=== PATIENT | male | born 1950 | race Caucasian/White ===

== ENCOUNTER 2017-07-17 11:21 | Observation (INO) | payer OTHER ==
[2017-07-17] MEDS ORDERED: ASPIRIN EC 325 MG TAB PO ONE ×2 (11:25→12:15)
[2017-07-17] MEDS ORDERED: NS 1,000 ML IV ONE (11:25)
[2017-07-17] MEDS ORDERED: FAMOTIDINE 20 MG TAB PO ONE (11:25)
[2017-07-17] MEDS ORDERED: DIAZEPAM 5 MG TAB PO ONE (11:25)
[2017-07-17] MEDS ORDERED: diphenhydrAMINE 25 MG CAP PO ONE ×2 (11:25→12:15)
[2017-07-17] MEDS ORDERED: IOPAMIDOL (ISOVUE-370) 150 ML BTL IV ONE ×2 (11:38→13:44)
[2017-07-17] MEDS ORDERED: LIDOCAINE 1% 300 MG/30 ML SDV ONE (11:38)
--- NOTE | 2017-07-17 11:48 | CPEKG ---
Heart Rate: 58 RR Interval: 1034 P-R Interval: 204 QRSD Interval: 88 QT Interval: 440 QTC Interval: 433 P [place]: 24 QRS [place]: 2 T Wave [place]: -35 EKG Severity - ABNORMAL ECG - EKG Impression: SINUS RHYTHM EKG Impression: PROBABLE LVH WITH SECONDARY REPOL ABNRM Electronically Signed By: Beni Frazier 17-Jul-2017 13:55:34
[2017-07-17] MEDS ORDERED: DIAZEPAM 5 MG TAB ONE (12:15)
[2017-07-17] MEDS ORDERED: FAMOTIDINE 20 MG TAB ONE (12:15)
--- NOTE | 2017-07-17 12:15 | PDPROPOC ---
Sedation Plan of Care Sedation Plan of Care: vital signs stable, mental status noted, patient educated of risks, benefits, alternatives, patient can tolerate sedation Mallampati Reference Image:
--- NOTE | 2017-07-17 12:16 | PDHPUP ---
History & Physical Update H&P update statement: This history and physical update is based on an assessment of the patient which was completed after admission or registration (within 24 hours), but prior to the surgery/procedure. H&P update: H&P reviewed & patient examined, no change in patient's condition since H&P completed
[2017-07-17] MEDS ORDERED: VERAPAMIL 5 MG/2 ML VIAL ONE ×2 (12:22→13:46)
[2017-07-17] MEDS ORDERED: HEPARIN 10,000 UNIT/10 ML MDV (1,000 UNIT/ML) ONE (12:22)
[2017-07-17] MEDS ORDERED: fentaNYL 100 MCG/2 ML INJ ONE ×2 (12:22→13:41)
[2017-07-17] MEDS ORDERED: MIDAZOLAM 2 MG/2 ML VIAL ONE ×2 (12:22→13:42)
[2017-07-17 12:37] LABS: PLATELET COUNT 195 10^3/uL (150-400)
[2017-07-17 13:10] LABS: INR 0.96 (0.83-1.16)
[2017-07-17] MEDS ORDERED: CLOPIDOGREL BISULFATE 75 MG TAB ONE (13:27)
[2017-07-17] MEDS ORDERED: NITROGLYCERIN 1,500 MCG/15 ML VIAL MISC ONE ×2 (13:35→14:06)
[2017-07-17] MEDS ORDERED: ONDANSETRON 4 MG/2 ML VIAL ONE (14:25)
[2017-07-17] MEDS ORDERED: ONDANSETRON 4 MG/2 ML VIAL IVP PRN (14:29)
[2017-07-17] MEDS ORDERED: NITROGLYCERIN 0.4 MG BTL SL PRN (14:29)
[2017-07-17] MEDS ORDERED: ATROPINE SULFATE 1 MG/10 ML SYR IVP PRN (14:29)
[2017-07-17] MEDS ORDERED: NS 1,000 ML IV SCH (14:30)
--- NOTE | 2017-07-17 14:35 | PDDXCAT ---
Diagnostic Cath Note - . 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 Prior areas of aneurysmal dilatation have resolved. LCX: 100% occlusion distally. Large obtuse marginal branch with 90% stenosis RCA: Dominant: Unobstructed Ramus: Unobstructed EDP: 20 mm of mercury LVEF: 60% post intervention Wall motion: No regional wall motion abnormalities Complications: None Estimated blood loss: <50ml Closure method: TR Band Assessment: Critical proximal LAD disease with 2 weeks of crescendo angina in large anterior ischemic defect by nuclear testing. Critical obtuse marginal stenosis. Preserved LV systolic function. Plan: Double vessel PCI Intervention: After reviewing diagnostic angiograms in reviewing them with Dr. Balderas of surgery it was elected to proceed with ad Hoc PCI. It anticoagulated with heparin. He was given an oral load of 600 mg of Plavix. Using a 6 [place] JL4 guiding catheter left main coronary selectively intubated from the right radial artery. Using a 0.014 luge wire the LAD stenosis was crossed and a wire placed in the distal vessel. Lesion was primarily stented with a 3.5 x 16 mm synergy stent. Repeat angiograms revealed CAYETANO grade 2 flow. A shelf was seen both proximal and distal to the stent. He was administered intracoronary nitroglycerin without resolution. A 3.0 x 8 mm synergy stent was placed distally with a single inflation. An overlapping inflation was performed with the stent balloon. A 4.0 x 12 mm synergy stent was placed proximally and deployed using a single inflation. Repeat angiogram showed CAYETANO grade 3 flow to the apex. Patient had significant ST elevation on the monitor. He he had significant tightness during this part of the procedure. He was administered intracoronary nitroglycerin. Intravascular ultrasound was slow pullback through the stents showed him to be perfectly apposed without complication proximally or distally. There was no complication of the left main. ST segments resolved. Pain resolved. Wire was withdrawn. A 2nd 0.014 luge wire was used to enter the circumflex artery and placed in the distal obtuse marginal branch. It was primarily stented with a 2.75 x 20 mm synergy stent deployed with a single inflation. Patient was administered intracoronary nitroglycerin. Therapeutic ACT was confirmed. Final orthogonal angiograms revealed CAYETANO grade 3 flow with significant improvement luminal diameter. Final diagnosis successful PCI and stenting of the proximal LAD and obtuse marginal branch. Patient was administered 6 mg of Versed 100 mcg of fentanyl. He received 25 mg of Benadryl and Zofran. He received 1500 mcg of nitroglycerin intracoronary. Contrast was 360 cc. Radiation was 2952 mGy Plan: IV normal saline 2 L in light of dye load. Observation overnight. Continue aggressive secondary prevention with dual antiplatelet therapy including aspirin and Plavix. Continue Praulent. Patient Problems: Problems Problem Status Onset Lumbar stenosis with neurogenic claudication Acute
[2017-07-17] MEDS ORDERED: ALIROCUMAB 75 MG SQ SCH (14:45)
--- NOTE | 2017-07-17 15:01 | CPEKG ---
Heart Rate: 52 RR Interval: 1154 P-R Interval: 204 QRSD Interval: 92 QT Interval: 480 QTC Interval: 447 P [place]: 6 QRS [place]: 0 T Wave [place]: -17 EKG Severity - ABNORMAL ECG - EKG Impression: SINUS RHYTHM Electronically Signed By: Beni Frazier 17-Jul-2017 16:38:22
[2017-07-17] MEDS: METOPROLOL TARTRATE 25 MG TAB PO SCH (21:00)
[2017-07-18 04:18] LABS: PLATELET COUNT 189 10^3/uL (150-400)
[2017-07-18 07:00] VITALS: BP 125/73
[2017-07-18] MEDS: METOPROLOL TARTRATE 25 MG TAB PO SCH (08:28)
--- NOTE | 2017-07-18 08:53 | CPEKG ---
Heart Rate: 70 RR Interval: 857 P-R Interval: 196 QRSD Interval: 90 QT Interval: 384 QTC Interval: 415 P [place]: 22 QRS [place]: 11 T Wave [place]: -53 EKG Severity - ABNORMAL ECG - EKG Impression: SINUS RHYTHM EKG Impression: NONSPECIFIC T ABNORMALITIES, DIFFUSE LEADS Electronically Signed By: Beni Frazier 18-Jul-2017 12:57:15
[2017-07-18] MEDS ORDERED: ASPIRIN EC 325 MG TAB PO SCH (09:00)
[2017-07-18] MEDS ORDERED: GLUCOSAMINE SULF 500 MG CAP PO SCH (09:00)
[2017-07-18] MEDS ORDERED: CLOPIDOGREL BISULFATE 75 MG TAB PO SCH (09:00)
[2017-07-18] MEDS ORDERED: MULTIVITAMINS 1 EACH TAB PO SCH (09:00)
--- NOTE | 2017-07-18 09:05 | ASMTCMCOM ---
CM Note CM Note Notes: Chart reviewed. Patient observation s/p angiogram. Medically cleared for discharge to home. No needs identified CM available should needs arise. Plan: Home independently Date Signed: 07/18/2017 09:04 AM Electronically Signed By:Claribel Mathis RN
--- NOTE | 2017-07-18 09:08 | ASMTLACE ---
LACE Length of stay for Answers: Less than 1 day current admission Acuity / Level of Answers: No Care: Did the patient have an inpatient admission? Comorbidities - select Answers: Coronary Artery Disease all that apply # of Emergency department Answers: 0 visits in the last 6 months Score: 2 Date Signed: 07/18/2017 09:08 AM Electronically Signed By:Claribel Mathis RN
--- NOTE | 2017-07-18 11:36 | GDS ---
[f rep st] DISCHARGE SUMMARY ADMISSION DIAGNOSES: 1. Exertional chest pressure. 2. Abnormal stress test. 3. Hyperlipidemia. DISCHARGE DIAGNOSES: 1. Coronary artery disease. 2. Status post percutaneous coronary intervention with DESTINY implantation in the proximal left anterio r descending artery with 3 stents, 4.0 x 12, 3.5 x 16, and a 3.0 x 8 Synergy DESTINY. 3. Status post percutaneous coronary intervention of obtuse marginal with DESTINY implantation of a 2.75 x 20 Synergy stent. 4. Hyperlipidemia. PROCEDURES PERFORMED DURING HOSPITALIZATION: 1. Electrocardiogram. 2. Diagnostic heart catheterization from the right radial approach. 3. Percutaneous coronary intervention of the left anterior descending artery with a 4.0 x 12, 3.5 x 16, and 3.0 x 8 Synergy DESTINY. 4. Percutaneous coronary intervention of the obtuse marginal with a 2.75 x 20 Synergy DESTINY. BRIEF HISTORY: Please see H and P. Briefly, the patient is a 67-year-old male who has been exhibiti ng exertional chest pain. He was seen at [facility] and underwent MPI study, which showed po sitive ischemia. He was sent to [facility] for further evaluation and cardiac catheter ization. HOSPITAL COURSE: Patient was prepped in [facility] and taken to the labor delivery rn. There, he underwent coronary angiogram by Dr. Nettles by right radial approach. Finding of study showed left main was unobstruc aung. LAD had a 90% proximal lesion. Left circumflex was 100% occluded, distal large OM branch with a 90% stenosis. RCA was dominant and unobstructed. Ramus was unobstructed. LVEF was 60% with no wal l motion abnormalities. LVEDP was 20 mmHg. At that time, Dr. Nettles proceeded on with americo s coronary intervention, first of the LAD, in which in the proximal artery he placed 4 stents, a 4.0 x 12, 3.5 x 16, and a 3.0 x 8 Synergy DESTINY implantation. No complication, CAYETANO-3 flow. He proceeded to intervene on the obtuse marginal, in which a 2.75 x 20 DESTINY stent was implanted. No complications. Patient was sent to the CVC and ultimately to the PCU for overnight observation. The patient has r emained on continuous cardiac monitoring. At 2 a.m., he was noted to have a 4-beat run of nonsustain ed ventricular tachycardia. He reports no chest pain, shortness of breath, or symptoms suggesting of ischemia. He has been up and walking in the unit without difficulties. No other arrhythmias have b een noted since 2 a.m. PHYSICAL EXAMINATION: Done today. GENERAL APPEARANCE: Mildly obese, medium built male. He is alert and oriented to person, place, time, and situation. Appears to be in no acute distress. VITAL SIGNS: Current vital signs are blood pressure of 125/73. Heart rate is 58, sinus bradycardia on the monitor. Respirations 17, saturating 96% on room air. Temperature of 36.4 degrees Celsius. HEENT: Head is normocephalic. Lips and tongue are pink and moist, with no signs of cyanosis. Conj unctivae pink. NECK: Trachea is midline, +2 carotid pulses bilateral. No auscultated bruits, no ju gular vein distention. RESPIRATORY: Lungs are clear to auscultation, no rhonchi, rales or wheezes. No accessory muscle use. No intercostal muscle retraction noted. CARDIAC: Regular rate, regular r hythm, S1, S2, no S3, S4, gallops, rubs or murmurs noted. ABDOMEN: Soft, nontender, bowel sounds x4 quadrants. No organomegaly. No palpable masses. SKIN: [place], warm, dry, no cyanosis, no clubbing, no peripheral edema. VASCULAR: +2 carotids bilateral, +2 radials bilateral, +1 dorsal pedal and po sterior tibial pulses bilateral. Catheter insertion site, right wrist site, with no redness, swellin g, drainage, ecchymosis, or hematoma. Normal CMS checks to the left hand. Normal capillary refill. LABORATORY STUDIES: Laboratory studies this morning showed WBC of 6.40, hemoglobin of 16.3, hematocr it of 47.2, platelet count of 189, sodium of 144, potassium 4.8, chloride 111, CO2 24, BUN 20, creati nine 0.9, glucose of 80, calcium 8.8, phosphorus 3.5. Magnesium 2.1, total bilirubin 1.1, AST 53. L actate dehydrogenase 484, albumin 3.5. Noted on admission, triglycerides were 85. Total cholesterol was 114, LDL 51, HDL 46. PROCEDURES PERFORMED: Diagnostic cardiac catheterization and percutaneous intervention of LAD and ci rcumflex as mentioned above. A morning electrocardiogram showed sinus rhythm with nonspecific T-wave abnormalities in multiple leads. DISCHARGE DISPOSITION: Patient will be discharged home in stable condition. He is under activity re strictions of not lifting more than 10 pounds with the right hand for the next week and no strenuous activity for the next 2 weeks. DISCHARGE MEDICATIONS: Please see discharge med reconciliation sheet. Note, patient has had [facility] ed aspirin therapy to 325 mg p.o. daily. He has also been started on clopidogrel at 75 mg p.o. daily . He will resume home dose of metoprolol tartrate at 25 mg p.o. b.i.d. Note that the patient has a history of statin intolerance, and he is currently on Praluent every 14 days. The patient's Cialis h as been discontinued at this time, and he will not resume dosage until he has at least followed up wi th Dr. Nettles in a week. DISCHARGE INSTRUCTIONS: Post percutaneous coronary intervention discharge instructions went over wit h the patient, including monitoring for signs of infection, bleeding precautions, activity restrictio ns, and importance of medication compliance, especially antiplatelet therapy after percutaneous coron amelia intervention with DESTINY implantation. The patient verbalizes understanding of all instructions and has no questions or concerns at this time. He has a scheduled followup appointment with Dr. Satish huertas in 1 week. He has been told that if any problems or concerns come up post discharge, he is to noti fy our office or return to the hospital. Total time spent on discharge greater than 30 minutes. /[id number]/MODL
== END 2017-07-18 11:46 | disposition home or self-care (01) ==
LOC: FCATH 11:21 → F2W 14:29
PROVIDERS: ADMIT Internal Medicine Interventional Cardiology; ATTEND Internal Medicine Interventional Cardiology
PROC: B2151ZZ Fluoroscopy of Left Heart using Low Osmolar Contrast (ICD-10-PCS; principal; 2017-07-17)
PROC: 4A023N7 Measurement of Cardiac Sampling and Pressure, Left Heart, Percutaneous Approach (ICD-10-PCS; principal; 2017-07-17)
PROC: B2111ZZ Fluoroscopy of Multiple Coronary Arteries using Low Osmolar Contrast (ICD-10-PCS; principal; 2017-07-17)
DX: I25.10 Atherosclerotic heart disease of native coronary artery without angina pectoris (principal); E78.5 Hyperlipidemia, unspecified
CPT/HCPCS: 92978; 93005; 93454; 93458; C1753; C1769; C1874; C1887; C9600; J1200; J1644; J2250; J2405; J3010; Q9967

== ENCOUNTER → 2017-08-25 | Outpatient (CLI) | payer OTHER | LOC: BHFA 09:15 | PROVIDERS: ATTEND Nurse Practitioner Adult Health | DX: R53.83 Other fatigue (principal); R53.81 Other malaise; I25.10 Atherosclerotic heart disease of native coronary artery without angina pectoris ==